=== PATIENT | female | born 1950 | race African-American/Black ===

== ENCOUNTER 2016-09-08 16:03 | Emergency (ER) | payer MEDICAID ==
[~2016-09-08] VITALS: Ht 157.5 cm; Wt 80.0 kg
[~2016-09-08 16:03] MED LIST: ALBUTEROL2.5 MG/3 M IN; AMOXICILLIN/CL500 MG PO; AMOXICILLIN/PO500 MG PO; ASPIRIN EC81 MG PO; ATENOLOL25 MG PO; ATENOLOL50 MG OR; AUGMENTIN500TAB PO; AUGMENTIN875TAB OR; AVAPRO OR; AVAPRO150 MG OR; AVELOX400 MG OR; BACTRIM DS1 TAB PO; BENTYL10 MG PO; CIPROFLOXACN500 MG PO; COLACE100 MG PO; CYCLOBENZAPR10 MG PO; DARVOCET N-100100 - OR; DIAZEPAM5 M1 OR; DOXYCYC MONO100 MG OR; FAMOTIDINE20 M1 PO; FLEXERIL OR; FLURAZEPAM15 MG OR; HOME NEBULIZER; HYDROCORT12 EX; ISOSORB DIN10 MG PO; KEFLEX500 MG PO; LACTULOS2 XX; LIPITOR10 MG PO; LIPITOR20 MG PO; LOPRESSOR50 MG OR; LORTAB 5 OR; LOSARTAN POT50 MG PO; MEDDOSEPAK PO; MELOXICAM15 MG PO; METOPROL TAR50 MG OR; METOPROLOL25 M1 OR; METOPROLOL50 MG OR; MIRALAX3350 NF OR; NAPROSYN375 MG PO; NAPROSYN500 MG PO; NITROGLYCER0.4 MG SL; OMEPRAZOLE20 MG OR; OMEPRAZOLE20 MG PO; OMEPRAZOLE40 MG PO; OXYCODO-APAP1 TA1 OR; PREDNISONE20 MG OR; PREVACID30 M1 OR; PREVACID30 M2 OR; PRILOSEC40 MG PO; PROAIR HFA IN; REGLAN10 MG OR; ROBITUSSIN AC10 ML PO; SIMVASTATIN20 MG OR; SIMVASTATIN20 MG PO; SYMBICORT1 AE1 IN; TESSALON PER100 MG PO; THEOPHYLLINE300 MG OR; TRAMADOL HCL50 MG PO; TRIAZOLAM0.125 MG OR; ULTRAM50 M1 PO; VENTOLIN HFA IN; VESICARE5 MG OR; ZITHROMAX250 MG PO; ZPAK PO
[2016-09-08 16:42] LABS: HEMATOCRIT 40.8 % (37.0-47.0); HEMOGLOBIN 13.2 g/dl (12.0-16.0); IMMATURE GRANULOCYTES 0.2 % (0.0-1.0); MEAN CELL VOLUME 89.3 fL CALC (80.0-100.0); MEAN CORPUSCULAR HGB 28.9 pG CALC (26.0-32.0); MEAN CORPUSCULAR HGB CONC 32.4 g/L CALC (32.0-36.0); NEUT# 2.63 thou/uL (2.00-7.15); RED BLOOD COUNT 4.57 mill/uL (4.20-5.60)
[2016-09-08 16:47] LABS: URINE BILIRUBIN - DIPSTICK NEGATIVE (NEGATIVE); URINE BLOOD DIPSTICK SMALL (NEGATIVE); URINE CLARITY CLEAR; URINE COLOR YELLOW; URINE GLUCOSE - DIPSTICK NEGATIVE (NEGATIVE); URINE KETONE NEGATIVE (NEGATIVE); URINE LEUK ESTERASE NEGATIVE (NEGATIVE); URINE NITRITE - DIPSTICK NEGATIVE (Negative); URINE PH 5.5 (4.5-8.0); URINE PROTEIN - DIPSTICK NEGATIVE (NEG-TRACE); URINE SPECIFIC GRAVITY >=1.030; URINE UROBILINOGEN - DIPSTICK 0.2 E.U./dL (0.2)
[2016-09-08 16:53] LABS: ALBUMIN 4.2 g/dL (3.2-5.0); ALKALINE PHOSPHATASE 104 u/l (38-126); ANION GAP 15 (6-22 (CALC)); BILIRUBIN, TOTAL 0.3 mg/dL (0.0-1.4); BUN 11 mg/dL (8-23); BUN/CREATININE RATIO 15 (12-20 (CALC)); CALCIUM 9.6 mg/dL (8.4-10.2); CARBON DIOXIDE 28 mmol/l (22-30); CHLORIDE 104 mmol/l (95-108); CREATININE 0.7 mg/dL (0.5-1.0); GFR > 60 ML/MIN (>=60 (CALC)); GFR FOR AFR.AMER. > 60 ML/MIN (>=60 (CALC)); GLUCOSE 82 mg/dL (82-115); SGOT/AST 23 u/l (9-36); SGPT/ALT 24 u/l (11-66); SODIUM 143 mmol/l (137-146); TOTAL PROTEIN 7.6 g/dL (6.3-8.2)
[2016-09-08 16:57] LABS: URINE SQUAMOUS EPITHELIAL CELL FEW EPI/hpf (0-FEW)
[2016-09-08] MEDS ORDERED: CIPROFLOXACN500 MG PO (19:08)
[2016-09-08] MEDS ORDERED: FLEXERIL PO (19:08)
[2016-09-08] MEDS ORDERED: LORTAB 10-325 M1 TAB PO (19:08)
[2016-09-08 19:20] VITALS: BP 133/71
== END 2016-09-08 19:20 | disposition home or self-care (01) | DRG 552 ==
LOC: ED 16:03
PROVIDERS: Emergency Medicine
DX: M54.5 Low back pain (principal); N39.0 Urinary tract infection, site not specified

== ENCOUNTER 2017-02-27 09:10 | Emergency (ER) | payer MEDICARE ==
[~2017-02-27] VITALS: Ht 157.5 cm; Wt 81.0 kg
[~2017-02-27 09:10] MED LIST changes: +FLEXERIL PO; +LORTAB 10-325 M1 TAB PO
[2017-02-27] MEDS ORDERED: LIPITOR40 M1 PO (09:21)
[2017-02-27] MEDS ORDERED: AMLODIPINE5 MG PO (09:21)
[2017-02-27 10:08] LABS: HEMATOCRIT 39.1 % (37.0-47.0); HEMOGLOBIN 12.8 g/dl (12.0-16.0); MEAN CELL VOLUME 88.9 fL CALC (80.0-100.0); MEAN CORPUSCULAR HGB 29.1 pG CALC (26.0-32.0); MEAN CORPUSCULAR HGB CONC 32.7 g/L CALC (32.0-36.0); NEUT# 2.22 thou/uL (2.00-7.15); RED BLOOD COUNT 4.4 mill/uL (4.20-5.60); RED CELL DISTRI WIDTH 14.1 % (11.5-15.5)
[2017-02-27 10:28] LABS: ALBUMIN 4.1 g/dL (3.2-5.0); ALKALINE PHOSPHATASE 105 u/l (38-126); ANION GAP 13 (6-22 (CALC)); BILIRUBIN, TOTAL 0.5 mg/dL (0.0-1.4); BUN 11 mg/dL (8-23); BUN/CREATININE RATIO 16 (12-20 (CALC)); CALCIUM 9.3 mg/dL (8.4-10.2); CARBON DIOXIDE 28 mmol/l (22-30); CHLORIDE 105 mmol/l (95-108); CREATININE 0.7 mg/dL (0.5-1.0); GFR > 60 ML/MIN (>=60 (CALC)); GFR FOR AFR.AMER. > 60 ML/MIN (>=60 (CALC)); GLUCOSE 99 mg/dL (82-115); SGOT/AST 24 u/l (9-36); SGPT/ALT 27 u/l (11-66); SODIUM 142 mmol/l (137-146); TOTAL PROTEIN 7.6 g/dL (6.3-8.2)
[2017-02-27 10:40] LABS: MYOGLOBIN 43 ng/mL (0 - 62)
[2017-02-27] MEDS ORDERED: ASPIRIN 81 LOW81 MG PO (10:53)
[2017-02-27 11:10] VITALS: BP 156/84
== END 2017-02-27 11:10 | disposition home or self-care (01) ==
LOC: ED 09:10
PROVIDERS: Emergency Medicine
DX: N64.4 Mastodynia (principal); R07.9 Chest pain, unspecified; R94.31 Abnormal electrocardiogram [ECG] [EKG]; F17.210 Nicotine dependence, cigarettes, uncomplicated

== ENCOUNTER 2017-03-24 10:37 | Emergency (ER) | payer MEDICARE ==
[~2017-03-24 10:37] MED LIST changes: +AMLODIPINE5 MG PO; +ASPIRIN 81 LOW81 MG PO; +LIPITOR40 M1 PO
[2017-03-24] MEDS ORDERED: MUCINEX600 MG PO (12:58)
[2017-03-24] MEDS ORDERED: AMOXICILLIN500 M2 PO (12:58)
== END 2017-03-24 11:14 | disposition left against medical advice (07) ==
LOC: ED 10:37 → LWOBS 11:14
DX: Z91.19 Patient's noncompliance with other medical treatment and regimen (principal)

== ENCOUNTER 2017-03-24 11:37 | Emergency (ER) | payer MEDICARE ==
[~2017-03-24] VITALS: Ht 157.5 cm; Wt 80.0 kg
[2017-03-24] MEDS ORDERED: MUCINEX600 MG PO (12:58)
[2017-03-24] MEDS ORDERED: AMOXICILLIN500 M2 PO (12:58)
[2017-03-24 13:09] VITALS: BP 134/81
== END 2017-03-24 13:13 | disposition home or self-care (01) ==
LOC: ED 11:37
DX: J40 Bronchitis, not specified as acute or chronic (principal); Z72.0 Tobacco use; R09.89 Other specified symptoms and signs involving the circulatory and respiratory systems; R05 Cough; I10 Essential (primary) hypertension

== ENCOUNTER 2017-03-26 14:50 | Emergency (ER) | payer MEDICARE ==
[~2017-03-26] VITALS: Ht 157.5 cm; Wt 70.0 kg
[~2017-03-26 14:50] MED LIST changes: +AMOXICILLIN500 M2 PO; +MUCINEX600 MG PO
[2017-03-26] MEDS ORDERED: ATORVASTATIN CA40 MG PO (15:23)
[2017-03-26 15:45] LABS: INFLUENZA A NONE DETECTED (NONE DETECT); INFLUENZA B NONE DETECTED (NONE DETECT)
[2017-03-26 16:36] VITALS: BP 122/73
== END 2017-03-26 16:40 | disposition home or self-care (01) ==
LOC: ED 14:50
PROVIDERS: Emergency Medicine
DX: J45.909 Unspecified asthma, uncomplicated (principal); I10 Essential (primary) hypertension; I25.10 Atherosclerotic heart disease of native coronary artery without angina pectoris; F17.210 Nicotine dependence, cigarettes, uncomplicated

== ENCOUNTER 2017-03-30 18:59 | Inpatient (IN) | payer MEDICARE, MEDICAID ==
[~2017-03-30] VITALS: Ht 157.5 cm; Wt 80.2 kg
[~2017-03-30 18:59] MED LIST changes: +ATORVASTATIN CA40 MG PO
[2017-03-30 19:44] LABS: HEMATOCRIT 37.9 % (37.0-47.0); HEMOGLOBIN 12.3 g/dl (12.0-16.0); IMMATURE GRANULOCYTES 0.2 % (0.0-1.0); MEAN CELL VOLUME 87.7 fL CALC (80.0-100.0); MEAN CORPUSCULAR HGB 28.5 pG CALC (26.0-32.0); MEAN CORPUSCULAR HGB CONC 32.5 g/L CALC (32.0-36.0); NEUT# 3.81 thou/uL (2.00-7.15); RED BLOOD COUNT 4.32 mill/uL (4.20-5.60)
[2017-03-30 20:05] LABS: ALBUMIN 3.6 g/dL (3.2-5.0); ALKALINE PHOSPHATASE 100 u/l (38-126); ANION GAP 14 (6-22 (CALC)); BILIRUBIN, TOTAL 0.5 mg/dL (0.0-1.4); BUN 10 mg/dL (8-23); BUN/CREATININE RATIO 14 (12-20 (CALC)); CALCIUM 9.3 mg/dL (8.4-10.2); CARBON DIOXIDE 30 mmol/l (22-30); CHLORIDE 101 mmol/l (95-108); CREATININE 0.7 mg/dL (0.5-1.0); GFR > 60 ML/MIN (>=60 (CALC)); GFR FOR AFR.AMER. > 60 ML/MIN (>=60 (CALC)); GLUCOSE 121 mg/dL (82-115); POTASSIUM 3.4 mmol/l (3.5-5.1); SGOT/AST 72 u/l (9-36); SGPT/ALT 51 u/l (11-66); SODIUM 142 mmol/l (137-146); TOTAL PROTEIN 6.8 g/dL (6.3-8.2)
[2017-03-30 20:16] LABS: MYOGLOBIN 109 ng/mL (0 - 62)
[2017-03-30 20:23] LABS: URINE BILIRUBIN - DIPSTICK NEGATIVE (NEGATIVE); URINE BLOOD DIPSTICK TRACE-INTACT (NEGATIVE); URINE COLOR YELLOW; URINE GLUCOSE - DIPSTICK NEGATIVE (NEGATIVE); URINE KETONE NEGATIVE (NEGATIVE); URINE LEUK ESTERASE NEGATIVE (NEGATIVE); URINE NITRITE - DIPSTICK NEGATIVE (Negative); URINE PROTEIN - DIPSTICK TRACE mg/dL (NEG-TRACE); URINE SPECIFIC GRAVITY 1.025
[2017-03-30 20:24] LABS: URINE CLARITY CLEAR
[2017-03-30 22:10] VITALS: BP 120/73
[2017-03-31 00:05] VITALS: BP 98/60
[2017-03-31 04:35] VITALS: BP 132/62
[2017-03-31 08:00] VITALS: BP 112/60
[2017-03-31 10:06] LABS: MAGNESIUM 2.2 mg/dL (1.6-2.3)
[2017-03-31 15:51] VITALS: BP 129/78
[2017-03-31 19:10] VITALS: BP 110/67
[2017-04-01 04:30] VITALS: BP 128/78
[2017-04-01 06:55] LABS: HEMATOCRIT 38.1 % (37.0-47.0); HEMOGLOBIN 12.4 g/dl (12.0-16.0); IMMATURE GRANULOCYTES 0.4 % (0.0-1.0); MEAN CELL VOLUME 86.8 fL CALC (80.0-100.0); MEAN CORPUSCULAR HGB 28.2 pG CALC (26.0-32.0); MEAN CORPUSCULAR HGB CONC 32.5 g/L CALC (32.0-36.0); NEUT# 5.85 thou/uL (2.00-7.15); RED BLOOD COUNT 4.39 mill/uL (4.20-5.60); RED CELL DISTRI WIDTH 13.9 % (11.5-15.5)
[2017-04-01 07:09] LABS: ANION GAP 16 (6-22 (CALC)); BUN 9 mg/dL (8-23); BUN/CREATININE RATIO 15 (12-20 (CALC)); CALCIUM 9.9 mg/dL (8.4-10.2); CARBON DIOXIDE 26 mmol/l (22-30); CHLORIDE 105 mmol/l (95-108); CREATININE 0.6 mg/dL (0.5-1.0); GFR > 60 ML/MIN (>=60 (CALC)); GFR FOR AFR.AMER. > 60 ML/MIN (>=60 (CALC)); GLUCOSE 149 mg/dL (82-115); MAGNESIUM 2.3 mg/dL (1.6-2.3); POTASSIUM 4.3 mmol/l (3.5-5.1); SODIUM 144 mmol/l (137-146)
[2017-04-01 08:35] VITALS: BP 134/69
[2017-04-01 16:51] VITALS: BP 121/66
[2017-04-01 19:15] VITALS: BP 120/75
[2017-04-02 05:29] VITALS: BP 131/71
[2017-04-02 08:17] VITALS: BP 143/79
[2017-04-02] MEDS ORDERED: LEVAQUIN750 MG PO (14:03)
== END 2017-04-02 15:00 | disposition home or self-care (01) | DRG 190 ==
LOC: ED 18:59 → ED-I 19:35 → ED 20:58 → MS2 20:59
PROVIDERS: Emergency Medicine; Nurse Practitioner Family; ADMIT Internal Medicine; ATTEND Internal Medicine
DX: J44.0 Chronic obstructive pulmonary disease with (acute) lower respiratory infection (principal); J18.9 Pneumonia, unspecified organism; J96.01 Acute respiratory failure with hypoxia; J44.1 Chronic obstructive pulmonary disease with (acute) exacerbation; I10 Essential (primary) hypertension; E87.6 Hypokalemia; E78.5 Hyperlipidemia, unspecified; F17.210 Nicotine dependence, cigarettes, uncomplicated; K59.00 Constipation, unspecified

== ENCOUNTER 2017-06-13 00:38 | Emergency (ER) | payer MEDICARE, MEDICAID ==
[~2017-06-13] VITALS: Ht 157.5 cm; Wt 79.4 kg
[~2017-06-13 00:38] MED LIST changes: +LEVAQUIN750 MG PO
[2017-06-13] MEDS ORDERED: IBUPROFEN600 MG PO (03:11)
[2017-06-13 04:30] VITALS: BP 121/72
== END 2017-06-13 04:30 | disposition home or self-care (01) ==
LOC: ED 00:38
DX: M17.11 Unilateral primary osteoarthritis, right knee (principal); M79.604 Pain in right leg

== ENCOUNTER 2017-06-30 15:17 | Emergency (ER) | payer MEDICARE, MEDICAID ==
[~2017-06-30] VITALS: Ht 157.5 cm; Wt 80.8 kg
[~2017-06-30 15:17] MED LIST changes: +IBUPROFEN600 MG PO
[2017-06-30 15:47] VITALS: BP 142/80
[2017-06-30] MEDS ORDERED: ZPAK PO (15:47)
== END 2017-06-30 15:57 | disposition home or self-care (01) ==
LOC: ED 15:17
DX: J40 Bronchitis, not specified as acute or chronic (principal); F17.210 Nicotine dependence, cigarettes, uncomplicated

== ENCOUNTER 2017-08-19 08:40 | Emergency (ER) | payer MEDICARE, MEDICAID ==
[~2017-08-19] VITALS: Ht 157.5 cm; Wt 81.0 kg
[2017-08-19] MEDS ORDERED: VENTOLIN HFA IN (09:04)
[2017-08-19] MEDS ORDERED: PREDNISONE50 MG PO (09:04)
[2017-08-19] MEDS ORDERED: LEVAQUIN500 MG PO (09:04)
[2017-08-19 09:29] VITALS: BP 154/83
== END 2017-08-19 09:29 | disposition home or self-care (01) ==
LOC: ED 08:40
DX: J20.9 Acute bronchitis, unspecified (principal); I10 Essential (primary) hypertension; J45.909 Unspecified asthma, uncomplicated; F17.210 Nicotine dependence, cigarettes, uncomplicated